=== PATIENT | female | born 1990 | race Caucasian/White ===

== ENCOUNTER 2016-10-10 19:19 | Emergency (ER) | payer MEDICAID ==
[~2016-10-10] VITALS: Ht 160 cm; Wt 49.0 kg
[~2016-10-10 19:19] MED LIST: BENZ100C70 PO; CODE118S PO
[2016-10-10 20:20] VITALS: Ht 160 cm; Wt 49.0 kg
[2016-10-10] MEDS ORDERED: ACETAMINOPHEN 500 MG TAB PO STA (22:17)
[2016-10-10] MEDS ORDERED: KETOROLAC 30 MG INJ IM STA (22:17)
[2016-10-10 22:36] LABS: URINE BLOOD (Dip) POC 3+ (NEGATIVE)
--- NOTE | 2016-10-10 23:17 | ERD ---
ER Documentation Chief Complaint Date/Time DATE: 10/10/16 TIME: 23:13 Chief Complaint MCINTOSH since last night with no relief HPI This is a 26-year-old female who presents the emergency department for headache 2 days. Patient states headache started last night and is mostly in frontal area of head. Has tried Tylenol and Advil without relief of pain. Denies nausea, vomiting. No head injury or trauma. Patient denies dysuria or hematuria. Patient states she did have a urine infection last week and was on an antibiotic for 2 days. Patient also has fevers at home. Patient did not check her temperature at home. No history of headache or migraine. Last menstrual period was 10/07/2016. ROS All systems reviewed and are negative except as per history of present illness. Medications Home Meds Active Scripts Ibuprofen* (Motrin*) 600 Mg Tab, 600 MG PO Q6, #15 TAB Prov:REMI BERNAL NP 10/11/16 Promethazine w/Codeine (Phenergan w/Codeine Syrup) 5 Ml Syrup, 5 ML PO QHS Y for COUGH, #100 ML Prov:XIN SULLIVAN PA-C 09/30/15 Benzonatate* (Tessalon Perle*) 100 Mg Capsule, 100 MG PO Q8H Y for COUGH, #30 CAP Prov:XIN SULLIVAN PA-C 09/30/15 Allergies Allergies: Coded Allergies: No Known Allergies (Verified Allergy, Unknown, 05/23/15) PMhx/Soc Medical and Surgical Hx: pt denies Medical Hx, pt denies Surgical Hx History of Surgery: No Anesthesia Reaction: No Hx Neurological Disorder: No Hx Respiratory Disorders: No Hx Cardiac Disorders: No Hx Psychiatric Problems: No Hx Miscellaneous Medical Probl: No Hx Alcohol Use: No Hx Substance Use: No Hx Tobacco Use: No Smoking Status: Never smoker Physical Exam Vitals Vital Signs Date Time Temp Pulse Resp B/P Pulse Ox O2 Delivery O2 Flow Rate FiO2 10/11/16 00:37 99.3 115 20 118/72 96 Room Air 10/10/16 20:20 100.4 124 20 121/64 97 Physical Exam Const: Alert, [id number] Head: Atraumatic Eyes: Normal Conjunctiva, PERRL ENT: Normal External Ears, Nose and Mouth. Neck: Full range of motion..~ No meningismus. Resp: Clear to auscultation bilaterally Cardio: Regular rate and rhythm, no murmurs Abd: Soft, non tender, non distended. Normal bowel sounds Skin: No petechiae or rashes Back: No midline or flank tenderness Ext: No cyanosis, or edema Neur: Awake and alert Psych: Normal Mood and Affect Results 24 hrs Laboratory Tests Test 10/10/16 22:37 Bedside Urine Blood 3+ Bedside Urine Glucose (UA) Negative Bedside Urine Ketones (LAB) Negative Bedside Urine Leukocyte Esterase (L Negative Bedside Urine Nitrite (LAB) Negative Bedside Urine Protein (LAB) 2+ Bedside Urine pH (LAB) 6.0 Current Medications Medications (Trade) Dose Ordered Sig/Diana Route PRN Reason Start Time Stop Time Status Last Admin Dose Admin Acetaminophen (Tylenol Tab) 500 mg ONCE STAT PO 10/10/16 22:17 10/10/16 22:19 DC 10/10/16 22:38 Ketorolac Tromethamine (Toradol) 30 mg ONCE STAT IM 10/10/16 22:17 10/10/16 22:19 DC 10/10/16 22:38 Procedures/MDM ED COURSE: The patient was stable throughout ED course. I kept the patient and/or family informed of laboratory and diagnostic imaging results throughout the ED course. Toradol and Tylenol given while in ED. Laboratory Urine dip 2+ protein, 3+ blood Urine negative MDM: 26-year-old female presents emergency department for headache 2 days. Patient had recent UTI and was on antibiotics about 3 days ago. Currently denies dysuria or hematuria. Has tried Tylenol and Advil at home without relief of headache. No nausea, vomiting or diarrhea. No head injury or trauma. No cough, shortness of breath or wheezing. Urine shows 2+ protein, 3+ blood otherwise negative. Urine is negative. Temp of 100.4F upon arrival to ED. Patient given Tylenol for this. Toradol given for pain. Temperature reduced. Patient states headache has improved. Low suspicion for CVA, intracranial hemorrhage, UTI or sepsis. Patient's diagnosis is likely tension headache vs. migraine headache. Patient is appropriate for outpatient management and will be discharged with prescription for ibuprofen. Instructed patient to follow up with PCP in the next 24-48 hrs for reassessment. Resources provided. Patient verbalizes understanding. All questions answered at discharge. Departure Diagnosis: Primary Impression: Headache Headache type: unspecified Headache chronicity pattern: acute headache Intractability: not intractable Qualified Code: R51 - Acute nonintractable headache, unspecified headache type Condition: RMEI Johns NP Oct 10, 2016 23:17
[2016-10-11] MEDS ORDERED: IBUP-1542 PO (00:12)
[2016-10-11 00:37] VITALS: BP 118/72; PULSE 115; RESP 20; TEMP 99.3
== END 2016-10-11 00:27 | disposition home or self-care (01) ==
LOC: FTE 19:19
DX: R51 Headache (principal)
CPT/HCPCS: 81003; J1885; Z7610; 96372

== ENCOUNTER 2017-10-10 23:23 | Emergency (ER) | END 2017-10-11 04:03 | disposition home or self-care (01) ==

== ENCOUNTER 2019-05-12 19:44 | Inpatient (IN) | payer MEDICAID ==
[~2019-05-12] VITALS: Ht 160 cm; Wt 57.6 kg
[~2019-05-12 19:44] MED LIST changes: +ACET500C5 PO; +BENZ-6 PO; -BENZ100C70 PO; +CALC600T24 PO; +CETI10CA PO; +FER325 PO; +FOLI-49 PO; +GUAI120S25 PO; +IBUP-1542 PO; +PREN-93 PO
[2019-05-12 19:51] VITALS: BP 127/80; PULSE 80; RESP 18; Ht 160 cm; Wt 57.6 kg
[2019-05-12] MEDS ORDERED: LACTATED RINGER'S 1,000 ML IV SCH (22:00)
[2019-05-12] MEDS ORDERED: LACTATED RINGER'S 1,000 ML IV ONE (22:00)
[2019-05-12] MEDS: TERBUTALINE 1 MG/ML INJ SC PRN (23:22)
[2019-05-13] MEDS: TERBUTALINE 1 MG/ML INJ SC PRN (00:52)
== END 2019-05-13 05:40 | disposition home or self-care (01) | DRG 833 ==
LOC: OBT 19:44 → L-D 19:46 → OBT 22:57 → L-D 22:57
PROVIDERS: ADMIT Obstetrics & Gynecology; ATTEND Obstetrics & Gynecology
DX: O47.03 False labor before 37 completed weeks of gestation, third trimester (principal); Z3A.29 29 weeks gestation of pregnancy
CPT/HCPCS: 36415; 76817; 76818; 81001; G0463; J3105; J7120

== ENCOUNTER 2019-07-09 04:40 | Inpatient (IN) | payer MEDICAID ==
[~2019-07-09] VITALS: Ht 160 cm; Wt 63.0 kg
[~2019-07-09 04:40] MED LIST changes: -ACET500C5 PO; +AZIT250T13 PO; -BENZ-6 PO; -CETI10CA PO; -CODE118S PO; -GUAI120S25 PO; -IBUP-1542 PO; +OSEL75CA23 PO
[2019-07-09 05:03] VITALS: Ht 160 cm; Wt 63.0 kg
[2019-07-09] MEDS ORDERED: LACTATED RINGER'S 1,000 ML IV PRN (05:07)
[2019-07-09] MEDS ORDERED: LACTATED RINGER'S 1,000 ML IV SCH (05:07)
[2019-07-09] MEDS ORDERED: IBUPROFEN 600 MG TAB PO PRN (05:30)
[2019-07-09] MEDS ORDERED: BUTORPHANOL 2 MG INJ IV PRN (05:30)
[2019-07-09] MEDS ORDERED: CARBOPROST 250 MCG INJ IM PRN ×2 (05:30→09:00)
[2019-07-09] MEDS ORDERED: LIDOCAINE 1% (MPF) 30 ML INJ INJ PRN (05:30)
[2019-07-09] MEDS ORDERED: AMPICILLIN 2 GM/NS (PMX) 100 ML IV ONE (05:30)
[2019-07-09] MEDS ORDERED: MISOPROSTOL 200 MCG TAB PR PRN ×2 (05:30→09:00)
[2019-07-09] MEDS ORDERED: MINERAL OIL LIGHT 10 ML VIAL TOP PRN (05:30)
[2019-07-09] MEDS ORDERED: OXYTOCIN 30 UNITS/LR 500 ML IV SCH ×4 (05:30→08:39)
[2019-07-09] MEDS ORDERED: METHYLERGONOVINE 0.2 MG INJ IM PRN ×2 (05:30→09:00)
[2019-07-09] MEDS ORDERED: OXYTOCIN 30 UNITS/LR 500 ML IV PRN ×2 (05:30→09:00)
[2019-07-09] MEDS ORDERED: FENTAnyl 2MCG/ML-ROPIV 0.2% 100 ML ONE (06:34)
[2019-07-09] MEDS ORDERED: FENTAnyl 2MCG/ML-ROPIV 0.2% 100 ML BAG EPI SCH (07:00)
[2019-07-09] MEDS ORDERED: NALOXONE (0.4 MG/ML) INJ IV PRN (07:00)
[2019-07-09] MEDS ORDERED: NACL 0.9% 3 ML SYG IV SCH (09:00)
[2019-07-09] MEDS ORDERED: BENZOCAINE 20% 56 ML SPRAY TOP PRN (09:00)
[2019-07-09] MEDS ORDERED: ACETAMINOPHEN 325 MG TAB PO PRN (09:00)
[2019-07-09] MEDS ORDERED: LANOLIN HPA 1 PKT TOP PRN (09:00)
[2019-07-09] MEDS ORDERED: ONDANSETRON 4 MG INJ IV PRN (09:00)
[2019-07-09] MEDS ORDERED: WITCH HAZEL/GLYCERIN PAD PR PRN (09:00)
[2019-07-09] MEDS ORDERED: AMPICILLIN 1 GM/NS (PMX) 50 ML IV SCH (09:30)
[2019-07-09 11:00] VITALS: BP 114/74; RESP 18
[2019-07-09] MEDS: SENNA/DOCUSATE NA (8.6MG/50MG) TAB PO SCH ×2 (11:00→20:21)
[2019-07-09 11:30] VITALS: BP 115/77; RESP 17
[2019-07-09] MEDS: IBUPROFEN 600 MG TAB PO SCH ×2 (12:35→17:16)
[2019-07-09 16:02] VITALS: BP 125/78; PULSE 75; RESP 20
[2019-07-09 19:50] VITALS: BP 116/56; PULSE 73; RESP 18
[2019-07-10] MEDS: IBUPROFEN 600 MG TAB PO SCH ×5 (00:06→23:53)
[2019-07-10 00:57] VITALS: BP 113/69; PULSE 79; RESP 18
[2019-07-10 04:40] VITALS: BP 98/58; PULSE 69; RESP 17
[2019-07-10 08:45] VITALS: BP 108/69; PULSE 69; RESP 18
[2019-07-10] MEDS: SENNA/DOCUSATE NA (8.6MG/50MG) TAB PO SCH ×2 (08:52→23:52)
[2019-07-10 15:35] VITALS: BP 108/64; PULSE 60; RESP 16
[2019-07-10 19:45] VITALS: BP 117/60; PULSE 68; RESP 19
[2019-07-11 04:15] VITALS: BP 102/65; PULSE 65; RESP 18
[2019-07-11] MEDS: IBUPROFEN 600 MG TAB PO SCH ×2 (06:06→11:51)
[2019-07-11 08:00] VITALS: BP 122/77; PULSE 66; RESP 18
[2019-07-11] MEDS: SENNA/DOCUSATE NA (8.6MG/50MG) TAB PO SCH (09:38)
== END 2019-07-11 12:25 | disposition home or self-care (01) | DRG 807 ==
LOC: OBT 04:40 → L-D 04:40 → OBT 05:08 → PP1 10:13
PROVIDERS: ADMIT Obstetrics & Gynecology; ATTEND Obstetrics & Gynecology
PROC: 10E0XZZ Delivery of Products of Conception, External Approach (ICD-10-PCS; principal; 2019-07-09)
PROC: 3E033VJ Introduction of Other Hormone into Peripheral Vein, Percutaneous Approach (ICD-10-PCS; 2019-07-09)
PROC: 0HQ9XZZ Repair Perineum Skin, External Approach (ICD-10-PCS; 2019-07-09)
DX: O70.0 First degree perineal laceration during delivery (principal); Z37.0 Single live birth; Z3A.38 38 weeks gestation of pregnancy
CPT/HCPCS: 62322; 76815; 80307; 85025; 85610; 85730; 86592; 86850; 86900; 86901; 87340; G0463; J0290; J2590; J3010; J7120